=== PATIENT | male | born 1965 | race Caucasian/White ===

== ENCOUNTER 2018-05-23 11:32 | Inpatient (IN) | payer OTHER ==
[2018-05-23 11:58] VITALS: BMI 23.6
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
[2018-05-23] MEDS ORDERED: IBUPROFEN 400 MG TABLET (FP) PO PRN (14:12)
[2018-05-23] MEDS ORDERED: MENTHOL/PHENOL 1 EACH UD MM PRN (14:12)
[2018-05-23] MEDS ORDERED: ACETAMINOPHEN 325 MG TABLET (FP) PO PRN (14:12)
[2018-05-23] MEDS ORDERED: hydrOXYzine PAMOATE 25 MG CAPSULE (FP) PO PRN (14:12)
[2018-05-23] MEDS ORDERED: P-EPHED 60MG/TRIPROLIDI 2.5MG TABLET PO PRN (14:12)
[2018-05-23] MEDS ORDERED: MAGNESIUM CITRATE 300 ML BOTTLE PO PRN (14:12)
[2018-05-23] MEDS ORDERED: guaiFENesin/D-METHORPHAN HB 10 ML UNIT-DOSE CUPS PO PRN (14:12)
[2018-05-23] MEDS ORDERED: LOPERAMIDE HCL 2 MG CAPSULE PO PRN (14:12)
[2018-05-23] MEDS ORDERED: MAGNESIUM HYDROX 2400MG/30ML ORAL SUSPENSION 30 ML CUP PO PRN (14:12)
[2018-05-23] MEDS ORDERED: NICOTINE POLACRILEX 2 MG GUM BUC PRN (14:12)
[2018-05-23] MEDS ORDERED: MAG HYDROX/AL HYDROX/SIMETH 30 ML UNIT-DOSE CUP PO PRN (14:12)
[2018-05-23] MEDS: NICOTINE 21 MG/24 HOURS TOPICAL PATCH TD SCH (15:50)
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
[2018-05-23 17:06] LABS: HEMATOCRIT 25.7 % (35.4-49); HEMOGLOBIN 8.2 GM/dL (11.7-16.9); MCH 20.4 pg (25.7-33.7); MCHC 31.9 g/dl (32.0-35.9); MEAN CELL VOLUME 63.8 fl (80-96); MEAN PLT VOLUME 7.7 fl (7.5-11.1); PLATELET COUNT 549 K/MM3 (134-434); RBC 4.03 M/mm3 (4.00-5.60); RDW 21.3 % (11.9-15.9); WHITE BLOOD COUNT 6.8 K/mm3 (4.0-10.0)
[2018-05-23 17:28] LABS: ALBUMIN 3.3 g/dl (3.4-5.0); ALK PHOS 117 U/L (45-117); ANION GAP 9 MMOL/L (8-16); BILIRUBIN,TOTAL 0.2 mg/dL (0.2-1); BLOOD UREA NITROGEN 16 mg/dL (7-18); CALCIUM 8.8 mg/dL (8.5-10.1); CHLORIDE 106 mmol/L (98-107); CO2 27 mmol/L (21-32); GLUCOSE,RANDOM 88 mg/dL (74-106); POTASSIUM 4.3 mmol/L (3.5-5.1); SGOT/AST 11 U/L (15-37); SGPT/ALT 13 U/L (13-61); SODIUM 142 mmol/L (136-145)
[2018-05-23 17:58] LABS: URINE APPEARANCE TURBID; URINE BILIRUBIN NEGATIVE (<2.0 mg/dL); URINE COLOR YELLOW; URINE GLUCOSE (UA) NEGATIVE (NEGATIVE); URINE KETONE NEGATIVE (NEGATIVE); URINE LEUK ESTERASE NEGATIVE (NEGATIVE); URINE NITRITE NEGATIVE (NEGATIVE); URINE PROTEIN NEGATIVE (NEGATIVE); URINE UROBILINOGEN NEGATIVE mg/dL (0.2-1.0)
[2018-05-23] MEDS: BACITRACIN 0.9 GM PACKET TP SCH (19:08)
[2018-05-23] MEDS: OLANZapine 5 MG TABLET PO SCH (21:07)
[2018-05-23] MEDS: THIAMINE HCL 100 MG TABLET (FP) PO SCH (21:07)
[2018-05-23] MEDS: ARIPiprazole 10 MG TABLET PO SCH (21:07)
[2018-05-24] MEDS: PRENATAL VITAMINS W/ FOLIC ACID TABLET (FP) PO SCH (10:04)
[2018-05-24] MEDS: BACITRACIN 0.9 GM PACKET TP SCH (10:05)
[2018-05-24] MEDS: NICOTINE 21 MG/24 HOURS TOPICAL PATCH TD SCH (10:05)
--- NOTE | 2018-05-24 11:39 | EKG ---
Test Reason : Blood Pressure : / mmHG Vent. Rate : 092 BPM Atrial Rate : 092 BPM P-R Int : 120 ms QRS Dur : 086 ms QT Int : 342 ms P-R-T Axes : 066 078 061 degrees QTc Int : 422 ms NORMAL SINUS RHYTHM NORMAL ECG NO PREVIOUS ECGS AVAILABLE Confirmed by JAYDA CAMILO, PIPPA ([id number]) on 05/24/2018 11:38:36 AM Referred By: Confirmed By:PIPPA MONTELONGO MD
--- NOTE | 2018-05-24 18:53 | PN ---
S Progress Note Note: Psychiatric nurse practitioner note: Will maintain patient on current medication regime of zyprexa 5mg and abilify 10mg. Patient is currently stable. No psychosis noted. Patient insist that this combination has worked well for him.
[2018-05-24] MEDS: OLANZapine 5 MG TABLET PO SCH (21:06)
[2018-05-24] MEDS: ARIPiprazole 10 MG TABLET PO SCH (21:07)
[2018-05-24] MEDS: THIAMINE HCL 100 MG TABLET (FP) PO SCH (21:07)
[2018-05-25] MEDS: PRENATAL VITAMINS W/ FOLIC ACID TABLET (FP) PO SCH (11:03)
[2018-05-25] MEDS: NICOTINE 21 MG/24 HOURS TOPICAL PATCH TD SCH (11:03)
[2018-05-25] MEDS: BACITRACIN 0.9 GM PACKET TP SCH (11:03)
[2018-05-25] MEDS: OLANZapine 5 MG TABLET PO SCH (21:21)
[2018-05-25] MEDS: ARIPiprazole 10 MG TABLET PO SCH (21:21)
[2018-05-25] MEDS: THIAMINE HCL 100 MG TABLET (FP) PO SCH (21:21)
[2018-05-26] MEDS: NICOTINE 21 MG/24 HOURS TOPICAL PATCH TD SCH (09:52)
[2018-05-26] MEDS: BACITRACIN 0.9 GM PACKET TP SCH (09:52)
[2018-05-26] MEDS: PRENATAL VITAMINS W/ FOLIC ACID TABLET (FP) PO SCH (09:53)
[2018-05-26] MEDS: THIAMINE HCL 100 MG TABLET (FP) PO SCH (21:12)
[2018-05-26] MEDS: ARIPiprazole 10 MG TABLET PO SCH (21:12)
[2018-05-26] MEDS: OLANZapine 5 MG TABLET PO SCH (21:12)
[2018-05-27] MEDS: NICOTINE 21 MG/24 HOURS TOPICAL PATCH TD SCH (10:01)
[2018-05-27] MEDS: BACITRACIN 0.9 GM PACKET TP SCH (10:01)
[2018-05-27] MEDS: PRENATAL VITAMINS W/ FOLIC ACID TABLET (FP) PO SCH (10:01)
[2018-05-27] MEDS: OLANZapine 5 MG TABLET PO SCH (21:04)
[2018-05-27] MEDS: THIAMINE HCL 100 MG TABLET (FP) PO SCH (21:04)
[2018-05-27] MEDS: ARIPiprazole 10 MG TABLET PO SCH (21:04)
[2018-05-28] MEDS: PRENATAL VITAMINS W/ FOLIC ACID TABLET (FP) PO SCH (10:04)
[2018-05-28] MEDS: NICOTINE 21 MG/24 HOURS TOPICAL PATCH TD SCH (10:04)
[2018-05-28] MEDS: BACITRACIN 0.9 GM PACKET TP SCH (10:04)
[2018-05-28] MEDS: OLANZapine 5 MG TABLET PO SCH (21:15)
[2018-05-28] MEDS: THIAMINE HCL 100 MG TABLET (FP) PO SCH (21:15)
[2018-05-28] MEDS: ARIPiprazole 10 MG TABLET PO SCH (21:15)
[2018-05-28] MEDS: MELATONIN 5 MG TABLETS PO PRN (21:16)
[2018-05-29] MEDS: BACITRACIN 0.9 GM PACKET TP SCH (10:05)
[2018-05-29] MEDS: NICOTINE 21 MG/24 HOURS TOPICAL PATCH TD SCH (10:05)
[2018-05-29] MEDS: PRENATAL VITAMINS W/ FOLIC ACID TABLET (FP) PO SCH (10:05)
[2018-05-29] MEDS: THIAMINE HCL 100 MG TABLET (FP) PO SCH (21:12)
[2018-05-29] MEDS: OLANZapine 5 MG TABLET PO SCH (21:12)
[2018-05-29] MEDS: ARIPiprazole 10 MG TABLET PO SCH (21:12)
[2018-05-29] MEDS: MELATONIN 5 MG TABLETS PO PRN (21:13)
[2018-05-30] MEDS: BACITRACIN 0.9 GM PACKET TP SCH (10:22)
[2018-05-30] MEDS: PRENATAL VITAMINS W/ FOLIC ACID TABLET (FP) PO SCH (10:22)
[2018-05-30] MEDS: NICOTINE 21 MG/24 HOURS TOPICAL PATCH TD SCH (10:23)
[2018-05-30] MEDS: THIAMINE HCL 100 MG TABLET (FP) PO SCH (21:14)
[2018-05-30] MEDS: OLANZapine 5 MG TABLET PO SCH (21:14)
[2018-05-30] MEDS: ARIPiprazole 10 MG TABLET PO SCH (21:14)
[2018-05-30] MEDS: MELATONIN 5 MG TABLETS PO PRN (21:14)
[2018-05-31] MEDS: BACITRACIN 0.9 GM PACKET TP SCH (10:12)
[2018-05-31] MEDS: NICOTINE 21 MG/24 HOURS TOPICAL PATCH TD SCH (10:13)
[2018-05-31] MEDS: PRENATAL VITAMINS W/ FOLIC ACID TABLET (FP) PO SCH (10:13)
[2018-05-31] MEDS: MELATONIN 5 MG TABLETS PO PRN (21:06)
[2018-05-31] MEDS: ARIPiprazole 10 MG TABLET PO SCH (21:06)
[2018-05-31] MEDS: OLANZapine 5 MG TABLET PO SCH (21:06)
[2018-05-31] MEDS: THIAMINE HCL 100 MG TABLET (FP) PO SCH (21:06)
[2018-06-01] MEDS: BACITRACIN 0.9 GM PACKET TP SCH (09:39)
[2018-06-01] MEDS: PRENATAL VITAMINS W/ FOLIC ACID TABLET (FP) PO SCH (09:39)
[2018-06-01] MEDS: NICOTINE 21 MG/24 HOURS TOPICAL PATCH TD SCH (09:39)
[2018-06-01] MEDS: OLANZapine 5 MG TABLET PO SCH (21:20)
[2018-06-01] MEDS: ARIPiprazole 10 MG TABLET PO SCH (21:20)
[2018-06-01] MEDS: THIAMINE HCL 100 MG TABLET (FP) PO SCH (21:20)
[2018-06-01] MEDS: MELATONIN 5 MG TABLETS PO PRN (21:21)
[2018-06-02] MEDS: NICOTINE 21 MG/24 HOURS TOPICAL PATCH TD SCH (09:55)
[2018-06-02] MEDS: PRENATAL VITAMINS W/ FOLIC ACID TABLET (FP) PO SCH (09:55)
[2018-06-02] MEDS: BACITRACIN 0.9 GM PACKET TP SCH (09:55)
[2018-06-02] MEDS: ARIPiprazole 10 MG TABLET PO SCH (21:18)
[2018-06-02] MEDS: OLANZapine 5 MG TABLET PO SCH (21:18)
[2018-06-02] MEDS: THIAMINE HCL 100 MG TABLET (FP) PO SCH (21:18)
[2018-06-02] MEDS: MELATONIN 5 MG TABLETS PO PRN (21:19)
[2018-06-03] MEDS: BACITRACIN 0.9 GM PACKET TP SCH (10:06)
[2018-06-03] MEDS: PRENATAL VITAMINS W/ FOLIC ACID TABLET (FP) PO SCH (10:06)
[2018-06-03] MEDS: NICOTINE 21 MG/24 HOURS TOPICAL PATCH TD SCH (10:06)
[2018-06-03] MEDS: MELATONIN 5 MG TABLETS PO PRN (21:18)
[2018-06-03] MEDS: OLANZapine 5 MG TABLET PO SCH (21:18)
[2018-06-03] MEDS: THIAMINE HCL 100 MG TABLET (FP) PO SCH (21:18)
[2018-06-03] MEDS: ARIPiprazole 10 MG TABLET PO SCH (21:18)
[2018-06-04] MEDS: PRENATAL VITAMINS W/ FOLIC ACID TABLET (FP) PO SCH (10:01)
[2018-06-04] MEDS: NICOTINE 21 MG/24 HOURS TOPICAL PATCH TD SCH (10:01)
[2018-06-04] MEDS: BACITRACIN 0.9 GM PACKET TP SCH (10:01)
--- NOTE | 2018-06-04 11:29 | PN ---
[facility] Progress Note Note: PT IS PLANNED FOR DISCHARGE TOMORROW PER HIS COUNSELOR/NURSE. PT REPORTS HE WILL BE FOLLOWING UP AT [facility] AND [facility] FOR MEDICAL MANAGEMENT. ALERT O X 3. Vital Signs 06/04/18 06/04/18 03:30 06:44 Temperature 98.1 F Pulse Rate 70 Respiratory 18 16 Rate Blood Pressure 136/76 NAD PLAN:D/C PT TODAY F/U WITH PRIMARY CARE AT [facility] FOR MEDICAL MANAGEMENT 1-2 WEEKS AFTER DISCHARGE. FOLLOW UP AT [facility] PROGRAM.
[2018-06-04] MEDS: ARIPiprazole 10 MG TABLET PO SCH (21:03)
[2018-06-04] MEDS: MELATONIN 5 MG TABLETS PO PRN (21:03)
[2018-06-04] MEDS: OLANZapine 5 MG TABLET PO SCH (21:03)
[2018-06-04] MEDS: THIAMINE HCL 100 MG TABLET (FP) PO SCH (21:03)
[2018-06-05 06:42] VITALS: BP 129/82; PULSE 71; TEMP 97.7
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
[2018-06-05] MEDS: PRENATAL VITAMINS W/ FOLIC ACID TABLET (FP) PO SCH (09:38)
[2018-06-05] MEDS: BACITRACIN 0.9 GM PACKET TP SCH (09:38)
[2018-06-05] MEDS: NICOTINE 21 MG/24 HOURS TOPICAL PATCH TD SCH (09:39)
--- NOTE | 2018-06-05 10:30 | PN ---
[facility] Progress Note Note: PT COMPLETED REHAB. REFERRED TO [facility] FOR AFTERCARE. FOLLOW UP AT [facility] FOR MEDICAL MANAGEMENT. Vital Signs 06/05/18 06:41 Temperature 97.7 F Pulse Rate 71 Respiratory 16 Rate Blood Pressure 129/82 NAD PLAN:D/C'D TODAY
== END 2018-06-05 09:55 | disposition home or self-care (01) | DRG 772 ==
LOC: YASAS 11:32 → Y5N 14:12
PROVIDERS: ADMIT Psychiatry & Neurology Psychiatry; ATTEND Psychiatry & Neurology Psychiatry
PROC: HZ42ZZZ Group Counseling for Substance Abuse Treatment, Cognitive-Behavioral (ICD-10-PCS; principal; 2018-05-23)
DX: F10.20 Alcohol dependence, uncomplicated (principal); F14.20 Cocaine dependence, uncomplicated; F17.210 Nicotine dependence, cigarettes, uncomplicated; F19.24 Other psychoactive substance dependence with psychoactive substance-induced mood disorder; F31.9 Bipolar disorder, unspecified; F20.9 Schizophrenia, unspecified; G81.94 Hemiplegia, unspecified affecting left nondominant side
CPT/HCPCS: 36415; 80053; 81003; 85027; 86593; 93005; 93010